=== PATIENT | male | born 1985 | race Caucasian/White ===

== ENCOUNTER 2017-01-16 11:07 | Inpatient (IN) | payer MEDICAID ==
[2017-01-16 12:07] LABS: BASOPHIL 0.2 % (0-2); EOSINOPHIL 0.1 % (0-5); HCT 45.5 % (42.0-52.0); HGB 15.3 g/dl (13.2-18.0); MCH 28.4 pg (25.0-31.0); MCHC 33.6 g/dL (32.0-36.0); MCV 84.4 fL (78.0-100.0); MONOCYTE 13.1 % (0-12); MPV 10.9 fL (6.0-9.5); NEUTROPHIL 73.6 % (41-80); PLT 189 K/uL (150-400); RBC 5.39 M/uL (4.70-6.00); RDW 14.1 % (11.5-14.0); WBC 10.2 K/uL (4.0-10.5)
[2017-01-16 12:21] LABS: LACTIC ACID 1.7 mmol/L (0.5-2.2)
[2017-01-16 12:28] LABS: ALBUMIN 4.4 g/dL (3.5-5.0); BILIRUBIN - TOTAL 0.5 mg/dL (0.1-1.0); CREATININE 1.3 mg/dL (0.7-1.2); GLOBULIN (CALCULATION) 3.9 g/dL (2.2-4.2); POTASSIUM 3.9 mmol/L (3.5-5.1); TOTAL PROTEIN 8.3 g/dL (6.4-8.3)
[2017-01-16 13:25] LABS: BILIRUBIN 1+ mg/dL (NEGATIVE); BLOOD 2+ Ery/uL (NEGATIVE); CLARITY CLEAR (CLEAR); COLOR YELLOW (YELLOW); GLUCOSE (U) NORMAL (NORMAL); KETONE (U) NEGATIVE (NEGATIVE); LEUKOCYTES NEGATIVE Leu/uL (NEGATIVE); NITRITE NEGATIVE (NEGATIVE); PROTEIN 3+ mg/dL (NEGATIVE); SPECIFIC GRAVITY >=1.030 (1.001-1.030)
[2017-01-16 13:33] LABS: BACTERIA 2+
[2017-01-16 13:41] LABS: AMPHETAMINES NEGATIVE (NEGATIVE); BARBITURATES NEGATIVE (NEGATIVE); BENZODIAZEPINES NEGATIVE (NEGATIVE); COCAINE NEGATIVE (NEGATIVE); MARIJUANA (THC) NEGATIVE (NEGATIVE); TRICYCLIC ANTIDEPRESSANT POSITIVE (NEGATIVE)
[2017-01-16 13:42] LABS: METHADONE NEGATIVE (NEGATIVE)
[2017-01-16 13:44] LABS: ACETAMINOPHEN (TYLENOL) < 5.0 ug/mL (10.0-30.0); ALCOHOL (ETOH) MEDICAL NONE DETECTED; SALICYLATE < 6 ug/mL (0-300)
[2017-01-17 05:46] LABS: HCT 44.2 % (42.0-52.0); HGB 14.7 g/dl (13.2-18.0); MCH 28.2 pg (25.0-31.0); MCHC 33.3 g/dL (32.0-36.0); MCV 84.8 fL (78.0-100.0); MPV 11.1 fL (6.0-9.5); RBC 5.21 M/uL (4.70-6.00); RDW 14.2 % (11.5-14.0); WBC 10.3 K/uL (4.0-10.5)
[2017-01-17 06:09] LABS: CREATININE 0.9 mg/dL (0.7-1.2); POTASSIUM 4.6 mmol/L (3.5-5.1)
[2017-01-18 06:08] LABS: CREATININE 0.9 mg/dL (0.7-1.2); POTASSIUM 4.6 mmol/L (3.5-5.1)
[2017-01-20 13:36] LABS: BASOPHIL 0.3 % (0-2); EOSINOPHIL 0 % (0-5); HCT 42.5 % (42.0-52.0); HGB 13.9 g/dl (13.2-18.0); LYMPHOCYTE 7.2 % (15-48); MCH 28.7 pg (25.0-31.0); MCHC 32.7 g/dL (32.0-36.0); MCV 87.6 fL (78.0-100.0); MPV 10.6 fL (6.0-9.5); NEUTROPHIL 86.5 % (41-80); PLT 191 K/uL (150-400); RBC 4.85 M/uL (4.70-6.00); RDW 14.3 % (11.5-14.0)
[2017-01-20 13:47] LABS: WBC 11.5 K/uL (4.0-10.5)
[2017-01-21 05:42] LABS: BASOPHIL 0.3 % (0-2); EOSINOPHIL 0 % (0-5); HCT 41.9 % (42.0-52.0); HGB 13.7 g/dl (13.2-18.0); LYMPHOCYTE 8.1 % (15-48); MCH 28.5 pg (25.0-31.0); MCHC 32.7 g/dL (32.0-36.0); MCV 87.1 fL (78.0-100.0); MONOCYTE 6.3 % (0-12); MPV 11.3 fL (6.0-9.5); NEUTROPHIL 85.3 % (41-80); PLT 185 K/uL (150-400); RBC 4.81 M/uL (4.70-6.00); RDW 14.1 % (11.5-14.0)
== END 2017-01-21 09:57 | disposition other institution (70) | DRG 871 ==
LOC: FER 11:07 → FMS 13:50
PROVIDERS: Internal Medicine; ADMIT Internal Medicine
DX: A41.9 Sepsis, unspecified organism (principal); J96.01 Acute respiratory failure with hypoxia; J18.9 Pneumonia, unspecified organism; N17.9 Acute kidney failure, unspecified; J45.901 Unspecified asthma with (acute) exacerbation; J45.909 Unspecified asthma, uncomplicated; G47.33 Obstructive sleep apnea (adult) (pediatric)
CPT/HCPCS: 36415; 36600; 71020; 71275; 80048; 80053; 80305; 81001; 82803; 83605; 84145; 84484; 85025; 85379; 87040; 87070; 87205; 87449; 93005; 94010; 94640; 94667; 94668; 94762; G0480; J1885; J1956; J2405; J2543; J2930; J3370; Q9967